=== PATIENT | female | born 1985 | race Caucasian/White ===

== ENCOUNTER 2019-03-04 01:34 | Emergency (ER) | payer BC, OTHER ==
[~2019-03-04] VITALS: Ht 177.8 cm; Wt 81.6 kg
[2019-03-04 01:35] VITALS: BP 114/84
== END 2019-03-04 02:20 | disposition home or self-care (01) ==
LOC: ER 01:38
DX: F10.129 Alcohol abuse with intoxication, unspecified (principal); Z60.2 Problems related to living alone; Y90.9 Presence of alcohol in blood, level not specified

== ENCOUNTER 2019-03-04 14:16 | Emergency (ER) | payer OTHER ==
[~2019-03-04] VITALS: Ht 177.8 cm; Wt 81.6 kg
--- NOTE | 2019-03-04 14:26 | NUR ---
DR ROQUE AT BEDSIDE
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
[2019-03-04] MEDS ORDERED: IBUPROFEN 400 MG TABLET ONE (15:26)
[2019-03-04] MEDS ORDERED: IBUPROFEN 400 MG TABLET PO ONE (15:30)
[2019-03-04 16:22] VITALS: BP 127/74
--- NOTE | 2019-03-04 16:22 | NUR ---
Patient discharged to home in stable condition. Written and verbal after care instructions given. Patient verbalizes understanding of instruction.
== END 2019-03-04 16:23 | disposition home or self-care (01) ==
LOC: ER 14:20
DX: S93.491A Sprain of other ligament of right ankle, initial encounter (principal); F17.200 Nicotine dependence, unspecified, uncomplicated; Z60.2 Problems related to living alone; X58.XXXA Exposure to other specified factors, initial encounter; Y93.89 Activity, other specified; Y92.89 Other specified places as the place of occurrence of the external cause; Y99.8 Other external cause status
CPT/HCPCS: 73610-TC